=== PATIENT | female | born 2005 | race Caucasian/White ===

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

== ENCOUNTER 2024-09-23 23:35 | Emergency (ER) | payer BC ==
--- NOTE | 2024-09-23 23:39 | ERPHSYRPT ---
- History of Present Illness Time Seen by Provider: 09/23/24 23:39 Historian: patient Exam Limitations: no limitations Physician History: The patient presents with chest pain, nausea, vomiting, and shortness of breath. Chest pain began around 7 to 8 PM today, initially intermittent but now persistent, and is exacerbated by breathing. There is no cough or hemoptysis. Shortness of breath accompanies the chest pain. She has a history of asthma but is not currently on any medication for it. Nausea and vomiting have been present since the onset of the chest pain, with no blood in the vomit. She reports experiencing diarrhea but denies any blood in the stool. She has a history of asthma and anxiety but is not currently taking any medication for anxiety. She was previously prescribed metoprolol for palpitations but has stopped taking it. There is a family history of thyroid issues, but she denies having any thyroid problems. Timing/Duration: hour(s) (3), sudden Activities at Onset: rest Quality: sharpness, stabbing Location: central Chest Pain Radiation: no radiation Severity of Pain-Max: severe Severity of Pain-Current: severe Modifying Factors: Improves With: nothing, other (deep breaths). Worsens With: coughing Associated Symptoms: nausea, vomiting, palpitations, shortness of breath, cough, hurts to breathe Prior Chest Pain/Cardiac Workup: no prior chest pain Nitro Today/Relief: no nitro taken today Aspirin Treatment Today: no aspirin today Allergies/Adverse Reactions: cephalexin monohydrate [From Keflex] Allergy (Verified 09/23/24 23:49) Home Medications: Ondansetron ODT 4 MG [Zofran Odt 4 mg] 8 mg PO Q6HPRN PRN 06/29/24 [History] Hx Tetanus, Diphtheria Vaccination/Date Given: Yes Hx Influenza Vaccination/Date Given: Yes Hx Pneumococcal Vaccination/Date Given: No - Review of Systems All Other Systems: Reviewed and Negative - Past Medical History Pertinent Past Medical History: Yes Neurological History: No Pertinent History ENT History: No Pertinent History Cardiac History: No Pertinent History Respiratory History: No Pertinent History Endocrine Medical History: No Pertinent History Musculoskeletal History: Other GI Medical History: No Pertinent History History: Other Psycho-Social History: No Pertinent History Female Reproductive Disorders: No Pertinent History Other Medical History: AVULSION FX RIGHT HIP NOTED ABOVE. - Past Surgical History Past Surgical History: No Neuro Surgical History: No Pertinent History Cardiac: No Pertinent History Respiratory: No Pertinent History Gastrointestinal: No Pertinent History Genitourinary: No Pertinent History Musculoskeletal: Orthopedic Surgery Female Surgical History: No Pertinent History Significant Family History: no pertinent family hx - Female History Hx Last Menstrual Period: NA - Social History Smoking Status: Never smoker Exposure to second hand smoke: Yes Drug Use: none Patient Lives Alone: No - Nursing Vital Signs Nursing Vital Signs: Initial Vital Signs Temperature 98.7 F 09/23/24 23:36 Pulse Rate 118 H 09/23/24 23:36 Respiratory Rate 22 09/23/24 23:36 Blood Pressure 132/81 09/23/24 23:36 O2 Sat by Pulse Oximetry 96 09/23/24 23:36 Pain Scale Pain Intensity 7 - Physical Exam General Appearance: no apparent distress, anxiety Eye Exam: eyes nml inspection Ears, Nose, Throat Exam: normal ENT inspection Neck Exam: normal inspection, supple, full range of motion Respiratory Exam: normal breath sounds, lungs clear, airway intact, No chest tenderness, No respiratory distress Cardiovascular Exam: normal heart sounds, tachycardia, capillary refill <2 sec, No edema Gastrointestinal/Abdomen Exam: soft, No tenderness, No distention, No mass, No g uarding, No rebound Neurologic Exam: alert, oriented x 3, cooperative, other (anxious) Skin Exam: normal color, warm, dry, No rash SpO2 Interpretation: normal O2 Delivery: Room Air - Course Nursing assessment & vital signs reviewed: Yes EKG Interpreted by Me: RATE (120), Sinus Tach, NORMAL AXIS, NORMAL INTERVALS, NORMAL QRS, NORMAL ST-T - Radiology Exams Chest X-ray Interpretation: Interpreted by me, Negative, No Pneumonia - CT Exams Chest CT Interpretation: Tele-radiologist Report, No PE, Other (LLL calcified nodule 6.5mm likely post granulomatous infection) Ordered Tests: Active Orders 24 hr Category Date Time Status Operating Room Registered Nurse STAT Care 09/23/24 23:43 Active EKG-ER Only STAT Care 09/23/24 23:42 Active IV Insertion STAT Care 09/23/24 23:42 Active CHEST 1 VIEW (PORTABLE) Stat Exams 09/23/24 23:43 Taken CHEST WITH CONTRAST [CT] Stat Exams 09/24/24 00:31 Completed CBC W DIFF Stat Lab 09/23/24 23:59 Completed CMP Stat Lab 09/23/24 23:59 Completed D-DIMER QUANTITATIVE Stat Lab 09/23/24 23:59 Completed HCG QUALITATIVE, SERUM Stat Lab 09/23/24 23:59 Completed TROPONIN Q4H Lab 09/23/24 23:59 Completed TROPONIN Q4H Lab 09/24/24 03:45 Ordered TROPONIN Q4H Lab 09/24/24 07:45 Ordered TSH, 3RD Generation Stat Lab 09/23/24 23:59 Completed UA W/RFX UR CULTURE Stat Lab 09/24/24 00:32 Completed Urine Triage Profile Stat Lab 09/24/24 00:32 Completed Medication Summary Generic Name Dose Route Start Last Admin Trade Name Freq PRN Reason Stop Dose Admin Sodium Chloride 1,000 mls @ 999 mls/hr 09/24/24 02:13 09/24/24 02:20 Sodium Chloride 0.9% 1000 Ml IV 09/24/24 03:13 999 mls/hr .Q1H1M STA Administration Discontinued Medications Generic Name Dose Route Start Last Admin Trade Name Freq PRN Reason Stop Dose Admin Sodium Chloride 1,000 mls @ 999 mls/hr 09/23/24 23:42 09/24/24 00:52 Sodium Chloride 0.9% 1000 Ml IV 09/24/24 00:42 Infused .Q1H1M STA Infusion Sodium Chloride Confirm 09/23/24 23:49 Sodium Chloride 0.9% 1000 Ml Administered 09/23/24 23:50 Dose 1,000 mls @ ud .ROUTE .STK-MED ONE Sodium Chloride Confirm 09/24/24 02:18 Sodium Chloride 0.9% 1000 Ml Administered 09/24/24 02:19 Dose 1,000 mls @ ud .ROUTE .STK-MED ONE Labetalol HCl 10 mg 09/24/24 02:14 Labetalol Hcl 20 Mg/4 Ml Disp.Syringe IV 09/24/24 02:15 STAT ONE Labetalol HCl Confirm 09/24/24 02:18 Labetalol Hcl 20 Mg/4 Ml Disp.Syringe Administered 09/24/24 02:19 Dose 20 mg IV .STK-MED ONE Ondansetron HCl 8 mg 09/23/24 23:44 09/23/24 23:50 Ondansetron Hcl 4 Mg/2 Ml Vial IV 09/23/24 23:45 8 mg STAT ONE Administration Ondansetron HCl Confirm 09/23/24 23:49 Ondansetron Hcl 4 Mg/2 Ml Vial Administered 09/23/24 23:50 Dose 8 mg .ROUTE .STK-MED ONE Ondansetron HCl 4 mg 09/24/24 02:13 09/24/24 02:20 Ondansetron Hcl 4 Mg/2 Ml Vial IV 09/24/24 02:14 4 mg STAT ONE Administration Ondansetron HCl Confirm 09/24/24 02:18 Ondansetron Hcl 4 Mg/2 Ml Vial Administered 09/24/24 02:19 Dose 4 mg .ROUTE .STK-MED ONE Lab/Rad Data: Laboratory Result Diagrams 09/23/24 23:59 09/23/24 23:59 Laboratory Results 09/24/24 09/24/24 09/24/24 Range/Units 00:45 00:32 00:32 WBC (3.98-10.04) x10^3/uL RBC (3.93-5.22) x10^6/uL Hgb (11.2-15.7) g/dL Hct (34.1-44.9) % MCV (79.4-94.8) fL MCH (25.6-32.2) pg MCHC (32.2-35.5) g/dL RDW (11.7-14.4) % Plt Count (182-369) x10^3/uL MPV (9.4-12.3) fL Gran % (34.0-71.1) % Immature Gran % (Auto) (0.001-0.429) % Nucleat RBC Rel Count (0.00-0.2) % Eos # (Auto) (0.04-0.36) x10^3/uL Immature Gran # (Auto) (0.001-0.031) x10^3u/L Absolute Lymphs (auto) (1.18-3.74) x10^3/uL Absolute Monos (auto) (0.24-0.86) x10^3/uL Absolute Nucleated RBC (0.00-0.012) x10^3u/L Lymphocytes % (19.3-51.7) % Monocytes % (4.7-12.5) % Eosinophils % (0.7-5.8) % Basophils % (0.1-1.2) % Absolute Granulocytes (1.56-6.13) x10^3/uL Basophils # (0.01-0.08) x10^3/uL D-Dimer (0.0-0.50) mg/L Sodium (135-145) mmol/L Potassium (3.5-5.1) mmol/L Chloride (98-107) mmol/L Carbon Dioxide (22-30) mmol/L Anion Gap (5-15) MEQ/L BUN (7-17) mg/dL Creatinine (0.52-1.04) mg/dL Estimated GFR ML/MIN Glucose (74-106) mg/dL Calcium (8.4-10.2) mg/dL Total Bilirubin (0.2-1.3) mg/dL AST (14-36) U/L ALT (0-35) U/L Alkaline Phosphatase (38-126) U/L Troponin I (0.000-0.033) ng/mL Serum Total Protein (6.3-8.2) g/dL Albumin (3.5-5.0) g/dL Free T4 (0.78-2.19) ng/dL TSH 3rd Generation (0.470-4.680) mIU/L Serum HCG, Qual (NEGATIVE) Urine Color Yellow (Yellow) Urine Appearance Clear (Clear) Urine pH 5.5 (4.6-8.0) Ur Specific [place] 1.020 (1.005-1.030) Urine Protein Negative (Negative) Urine Glucose (UA) Negative (Negative) mg/dL Urine Ketones Trace A (Negative) Urine Blood Negative (Negative) Urine Nitrite Negative (Negative) Urine Bilirubin Negative (Negative) Urine Urobilinogen 0.2 (0.2) mg/dL Ur Leukocyte Esterase Negative (Negative) U Hyaline Cast (Auto) 3-5 A (0-2) /LPF Urine Microscopic RBC 3-5 (0-5) /HPF Urine Microscopic WBC 0-2 (0-5) /HPF Ur Epithelial Cells Few (None Seen) /HPF Urine Bacteria None Seen (None Seen) /HPF Urine Culture Reflexed NO (NO) Urine Opiates Level NEGATIVE (NEGATIVE) Ur Methadone NEGATIVE (NEGATIVE) Urine Barbiturates NEGATIVE (NEGATIVE) Ur Phencyclidine (PCP) NEGATIVE (NEGATIVE) Urine Amphetamine NEGATIVE (NEGATIVE) U Benzodiazepine Level NEGATIVE (NEGATIVE) Urine Cocaine NEGATIVE (NEGATIVE) Urine Marijuana (THC) NEGATIVE (NEGATIVE) Influenza Type A Ag NEGATIVE (NEGATIVE) Influenza Type B Ag NEGATIVE (NEGATIVE) RSV (PCR) NEGATIVE (NEGATIVE) SARS-CoV-2 (PCR) NEGATIVE (NEGATIVE) 09/23/24 09/23/24 09/23/24 Range/Units 23:59 23:59 23:59 WBC (3.98-10.04) x10^3/uL RBC (3.93-5.22) x10^6/uL Hgb (11.2-15.7) g/dL Hct (34.1-44.9) % MCV (79.4-94.8) fL MCH (25.6-32.2) pg MCHC (32.2-35.5) g/dL RDW (11.7-14.4) % Plt Count (182-369) x10^3/uL MPV (9.4-12.3) fL Gran % (34.0-71.1) % Immature Gran % (Auto) (0.001-0.429) % Nucleat RBC Rel Count (0.00-0.2) % Eos # (Auto) (0.04-0.36) x10^3/uL Immature Gran # (Auto) (0.001-0.031) x10^3u/L Absolute Lymphs (auto) (1.18-3.74) x10^3/uL Absolute Monos (auto) (0.24-0.86) x10^3/uL Absolute Nucleated RBC (0.00-0.012) x10^3u/L Lymphocytes % (19.3-51.7) % Monocytes % (4.7-12.5) % Eosinophils % (0.7-5.8) % Basophils % (0.1-1.2) % Absolute Granulocytes (1.56-6.13) x10^3/uL Basophils # (0.01-0.08) x10^3/uL D-Dimer (0.0-0.50) mg/L Sodium (135-145) mmol/L Potassium (3.5-5.1) mmol/L Chloride (98-107) mmol/L Carbon Dioxide (22-30) mmol/L Anion Gap (5-15) MEQ/L BUN (7-17) mg/dL Creatinine (0.52-1.04) mg/dL Estimated GFR ML/MIN Glucose (74-106) mg/dL Calcium (8.4-10.2) mg/dL Total Bilirubin (0.2-1.3) mg/dL AST (14-36) U/L ALT (0-35) U/L Alkaline Phosphatase (38-126) U/L Troponin I < 0.012 (0.000-0.033) ng/mL Serum Total Protein (6.3-8.2) g/dL Albumin (3.5-5.0) g/dL Free T4 1.09 (0.78-2.19) ng/dL TSH 3rd Generation (0.470-4.680) mIU/L Serum HCG, Qual NEGATIVE (NEGATIVE) Urine Color (Yellow) Urine Appearance (Clear) Urine pH (4.6-8.0) Ur Specific [place] (1.005-1.030) Urine Protein (Negative) Urine Glucose (UA) (Negative) mg/dL Urine Ketones (Negative) Urine Blood (Negative) Urine Nitrite (Negative) Urine Bilirubin (Negative) Urine Urobilinogen (0.2) mg/dL Ur Leukocyte Esterase (Negative) U Hyaline Cast (Auto) (0-2) /LPF Urine Microscopic RBC (0-5) /HPF Urine Microscopic WBC (0-5) /HPF Ur Epithelial Cells (None Seen) /HPF Urine Bacteria (None Seen) /HPF Urine Culture Reflexed (NO) Urine Opiates Level (NEGATIVE) Ur Methadone (NEGATIVE) Urine Barbiturates (NEGATIVE) Ur Phencyclidine (PCP) (NEGATIVE) Urine Amphetamine (NEGATIVE) U Benzodiazepine Level (NEGATIVE) Urine Cocaine (NEGATIVE) Urine Marijuana (THC) (NEGATIVE) Influenza Type A Ag (NEGATIVE) Influenza Type B Ag (NEGATIVE) RSV (PCR) (NEGATIVE) SARS-CoV-2 (PCR) (NEGATIVE) 09/23/24 09/23/24 09/23/24 Range/Units 23:59 23:59 23:59 WBC (3.98-10.04) x10^3/uL RBC (3.93-5.22) x10^6/uL Hgb (11.2-15.7) g/dL Hct (34.1-44.9) % MCV (79.4-94.8) fL MCH (25.6-32.2) pg MCHC (32.2-35.5) g/dL RDW (11.7-14.4) % Plt Count (182-369) x10^3/uL MPV (9.4-12.3) fL Gran % (34.0-71.1) % Immature Gran % (Auto) (0.001-0.429) % Nucleat RBC Rel Count (0.00-0.2) % Eos # (Auto) (0.04-0.36) x10^3/uL Immature Gran # (Auto) (0.001-0.031) x10^3u/L Absolute Lymphs (auto) (1.18-3.74) x10^3/uL Absolute Monos (auto) (0.24-0.86) x10^3/uL Absolute Nucleated RBC (0.00-0.012) x10^3u/L Lymphocytes % (19.3-51.7) % Monocytes % (4.7-12.5) % Eosinophils % (0.7-5.8) % Basophils % (0.1-1.2) % Absolute Granulocytes (1.56-6.13) x10^3/uL Basophils # (0.01-0.08) x10^3/uL D-Dimer 1.30 H* (0.0-0.50) mg/L Sodium 140 (135-145) mmol/L Potassium 4.0 (3.5-5.1) mmol/L Chloride 107 (98-107) mmol/L Carbon Dioxide 20 L (22-30) mmol/L Anion Gap 17.0 H (5-15) MEQ/L BUN 12 (7-17) mg/dL Creatinine 0.72 (0.52-1.04) mg/dL Estimated GFR 122.7 ML/MIN Glucose 137 H (74-106) mg/dL Calcium 9.6 (8.4-10.2) mg/dL Total Bilirubin 0.70 (0.2-1.3) mg/dL AST 30 (14-36) U/L ALT 25 (0-35) U/L Alkaline Phosphatase 130 H (38-126) U/L Troponin I (0.000-0.033) ng/mL Serum Total Protein 8.5 H (6.3-8.2) g/dL Albumin 5.0 (3.5-5.0) g/dL Free T4 (0.78-2.19) ng/dL TSH 3rd Generation 0.702 (0.470-4.680) mIU/L Serum HCG, Qual (NEGATIVE) Urine Color (Yellow) Urine Appearance (Clear) Urine pH (4.6-8.0) Ur Specific [place] (1.005-1.030) Urine Protein (Negative) Urine Glucose (UA) (Negative) mg/dL Urine Ketones (Negative) Urine Blood (Negative) Urine Nitrite (Negative) Urine Bilirubin (Negative) Urine Urobilinogen (0.2) mg/dL Ur Leukocyte Esterase (Negative) U Hyaline Cast (Auto) (0-2) /LPF Urine Microscopic RBC (0-5) /HPF Urine Microscopic WBC (0-5) /HPF Ur Epithelial Cells (None Seen) /HPF Urine Bacteria (None Seen) /HPF Urine Culture Reflexed (NO) Urine Opiates Level (NEGATIVE) Ur Methadone (NEGATIVE) Urine Barbiturates (NEGATIVE) Ur Phencyclidine (PCP) (NEGATIVE) Urine Amphetamine (NEGATIVE) U Benzodiazepine Level (NEGATIVE) Urine Cocaine (NEGATIVE) Urine Marijuana (THC) (NEGATIVE) Influenza Type A Ag (NEGATIVE) Influenza Type B Ag (NEGATIVE) RSV (PCR) (NEGATIVE) SARS-CoV-2 (PCR) (NEGATIVE) 09/23/24 Range/Units 23:59 WBC 17.6 H (3.98-10.04) x10^3/uL RBC 5.51 H (3.93-5.22) x10^6/uL Hgb 15.7 (11.2-15.7) g/dL Hct 46.5 H (34.1-44.9) % MCV 84.4 (79.4-94.8) fL MCH 28.5 (25.6-32.2) pg MCHC 33.8 (32.2-35.5) g/dL RDW 12.8 (11.7-14.4) % Plt Count 283 (182-369) x10^3/uL MPV 10.0 (9.4-12.3) fL Gran % 90.8 H (34.0-71.1) % Immature Gran % (Auto) 0.4 (0.001-0.429) % Nucleat RBC Rel Count 0.0 (0.00-0.2) % Eos # (Auto) 0.05 (0.04-0.36) x10^3/uL Immature Gran # (Auto) 0.07 H (0.001-0.031) x10^3u/L Absolute Lymphs (auto) 0.60 L (1.18-3.74) x10^3/uL Absolute Monos (auto) 0.88 H (0.24-0.86) x10^3/uL Absolute Nucleated RBC 0.00 (0.00-0.012) x10^3u/L Lymphocytes % 3.4 L (19.3-51.7) % Monocytes % 5.0 (4.7-12.5) % Eosinophils % 0.3 L (0.7-5.8) % Basophils % 0.1 (0.1-1.2) % Absolute Granulocytes 15.96 H (1.56-6.13) x10^3/uL Basophils # 0.02 (0.01-0.08) x10^3/uL D-Dimer (0.0-0.50) mg/L Sodium (135-145) mmol/L Potassium (3.5-5.1) mmol/L Chloride (98-107) mmol/L Carbon Dioxide (22-30) mmol/L Anion Gap (5-15) MEQ/L BUN (7-17) mg/dL Creatinine (0.52-1.04) mg/dL Estimated GFR ML/MIN Glucose (74-106) mg/dL Calcium (8.4-10.2) mg/dL Total Bilirubin (0.2-1.3) mg/dL AST (14-36) U/L ALT (0-35) U/L Alkaline Phosphatase (38-126) U/L Troponin I (0.000-0.033) ng/mL Serum Total Protein (6.3-8.2) g/dL Albumin (3.5-5.0) g/dL Free T4 (0.78-2.19) ng/dL TSH 3rd Generation (0.470-4.680) mIU/L Serum HCG, Qual (NEGATIVE) Urine Color (Yellow) Urine Appearance (Clear) Urine pH (4.6-8.0) Ur Specific [place] (1.005-1.030) Urine Protein (Negative) Urine Glucose (UA) (Negative) mg/dL Urine Ketones (Negative) Urine Blood (Negative) Urine Nitrite (Negative) Urine Bilirubin (Negative) Urine Urobilinogen (0.2) mg/dL Ur Leukocyte Esterase (Negative) U Hyaline Cast (Auto) (0-2) /LPF Urine Microscopic RBC (0-5) /HPF Urine Microscopic WBC (0-5) /HPF Ur Epithelial Cells (None Seen) /HPF Urine Bacteria (None Seen) /HPF Urine Culture Reflexed (NO) Urine Opiates Level (NEGATIVE) Ur Methadone (NEGATIVE) Urine Barbiturates (NEGATIVE) Ur Phencyclidine (PCP) (NEGATIVE) Urine Amphetamine (NEGATIVE) U Benzodiazepine Level (NEGATIVE) Urine Cocaine (NEGATIVE) Urine Marijuana (THC) (NEGATIVE) Influenza Type A Ag (NEGATIVE) Influenza Type B Ag (NEGATIVE) RSV (PCR) (NEGATIVE) SARS-CoV-2 (PCR) (NEGATIVE) - Progress Progress: improved Air Movement: good Progress Note: 09/23/24 23:48 Chest Pain Intermittent chest pain that has become constant since getting in the car, worsens with breathing. No cough, hemoptysis, or diarrhea. Differential diagnosis includes musculoskeletal pain, pleuritic pain, or cardiac-related pain. Palpitations present, not taking prescribed metoprolol. - Order diagnostic tests to evaluate chest pain, including cardiac and pulmonary assessments. Shortness of Breath Acute shortness of breath associated with chest pain and nausea, worsens with breathing. No history of asthma. - Order diagnostic tests to evaluate shortness of breath, including pulmonary function tests. Nausea and Vomiting Acute onset of nausea and vomiting starting around 7-8 PM, associated with chest pain and shortness of breath. No hematemesis. - Order diagnostic tests to evaluate nausea and vomiting, including gastrointestinal assessment. 09/24/24 02:15 labs consistent with dehydration, 1L NS bolus completed, HR still ranging from 100-120 so 2nd L NS given. COVID, Flu, RSV all neg. CTA chest was ordered to d- dimer of 1.3 which was neg for PE. 09/24/24 02:18 EKG and troponin neg. Unlikely cardiac source of CP. Blood Culture(s) Obtained: No Antibiotics given: No Counseled pt/family regarding: lab results, diagnosis, need for follow-up, rad results - Departure Departure Disposition: Home Clinical Impression: Viral gastroenteritis, Dehydration, Elevated d-dimer, Atypical chest pain Condition: Stable Critical Care Time: No Referrals: [facility]IST [Primary Care Provider] - Follow up/PCP as directed Instructions: Viral gastroenteritis in adults Prescriptions: Ondansetron [Ondansetron Odt] 8 mg PO TID PRN 7 Days #21 tablet PRN Reason: Nausea/Vomiting
[2024-09-23 23:49] VITALS: TEMP 98.7
[2024-09-23] MEDS ORDERED: Zofran 4 MG/2 ML VIAL ONE (23:49)
[2024-09-23] MEDS ORDERED: Sodium Chloride 0.9% 1000 ML 1,000 ML ONE (23:49)
[2024-09-23] MEDS: Sodium Chloride 0.9% 1000 ML 1,000 ML IV STA (23:50)
[2024-09-23] MEDS: Zofran 4 MG/2 ML VIAL IV ONE (23:50)
[2024-09-24 00:02] LABS: Absolute Neutrophil Ct (ANC) 15.96 x10^3/uL (1.56-6.13); BASOPHIL % 0.1 % (0.1-1.2); Basophil (Absolute #) 0.02 x10^3/uL (0.01-0.08); Eosinophil % 0.3 % (0.7-5.8); Eosinophil (Absolute #) 0.05 x10^3/uL (0.04-0.36); Hematocrit 46.5 % (34.1-44.9); Hemoglobin 15.7 g/dL (11.2-15.7); IMMATURE GRAN # 0.07 x10^3u/L (0.001-0.031); IMMATURE GRAN % 0.4 % (0.001-0.429); Lymphocytes % 3.4 % (19.3-51.7); Mean Cell Volume 84.4 fL (79.4-94.8); Mean Corpuscular Hemoglobin 28.5 pg (25.6-32.2); Mean Corpuscular Hgb Concent. 33.8 g/dL (32.2-35.5); Monocyte (Absolute #) 0.88 x10^3/uL (0.24-0.86); Neutrophil % 90.8 % (34.0-71.1); Platelet Count 283 x10^3/uL (182-369); Red Blood Count 5.51 x10^6/uL (3.93-5.22); Red Cell Distribution Width 12.8 % (11.7-14.4); White Blood Count 17.6 x10^3/uL (3.98-10.04)
[2024-09-24 00:14] LABS: HCG SERUM TEST NEGATIVE (NEGATIVE)
[2024-09-24 00:15] LABS: BILIRUBIN,TOTAL 0.7 mg/dL (0.2-1.3); Calcium 9.6 mg/dL (8.4-10.2); Creatinine 1 0.72 mg/dL (0.52-1.04); EST GLOMERULAR FILTRATION RATE 122.7 ML/MIN; Total Protein 8.5 g/dL (6.3-8.2)
[2024-09-24 00:45] LABS: Appearance Clear (Clear); Bacteria None Seen /HPF (None Seen); Bilirubin Negative (Negative); Blood Negative (Negative); Epithelial Cells Few /HPF (None Seen); Glucose, Urine Negative (Negative); Ketones Trace (Negative); Leukocyte Esterase Negative (Negative); Nitrite Negative (Negative); Ph 5.5 (4.6-8.0); Protein,Urine Dip Negative (Negative); Urobilinogen 0.2 mg/dL (0.2); WBC 0-2 /HPF (0-5)
[2024-09-24 00:53] LABS: Amphetamine,Urine NEGATIVE (NEGATIVE); Barbiturate,Urine NEGATIVE (NEGATIVE); Benzodiazepine,Urine NEGATIVE (NEGATIVE); Cocaine,Urine NEGATIVE (NEGATIVE); Methadone,Urine NEGATIVE (NEGATIVE); Opiate,Urine NEGATIVE (NEGATIVE); PCP,Urine NEGATIVE (NEGATIVE); THC,Urine NEGATIVE (NEGATIVE)
[2024-09-24 01:25] LABS: INFLUENZA A NEGATIVE (NEGATIVE); INFLUENZA B NEGATIVE (NEGATIVE); RESPIRATORY SYNCTIAL VIRUS NEGATIVE (NEGATIVE); SARS-CoV-2 Xpert Express NEGATIVE (NEGATIVE)
--- NOTE | 2024-09-24 02:08 | XRAY ---
CLINICAL HISTORY: chest pain COMPARISON: None. TECHNIQUE: Contiguous axial CT angiography images of the chest were acquired with the administration of intravenous contrast. Coronal and sagittal reconstructions were obtained. 80cc of isovue 370 was administered intravenously. One of the following dose reduction techniques was utilized for this exam: Automated exposure control, adjustment of the mA and/or kV according to patient size, and use of iterative reconstruction. One of these 3D techniques was utilized: Maximum Intensity Pixel (MIP), 3D Reconstructed Images, Volume Rendered Images, Surface Shaded Rendering. DLP: 462.9 mGy-cm, CTDI: 29.4 mGy. FINDINGS: Lungs: Left lower lung lobe calcified pulmonary nodule measuring 6.5 mm; likely post-granulomatous infection. No evidence of consolidation, or collapse. No ground-glass opacities or interstitial changes. No pleural effusion or pleural thickening. Mediastinum: No mediastinal mass or abnormal lymphadenopathy. Heart and Great Vessels: Normal heart size and configuration. No pericardial effusion. Normal caliber and course of the thoracic aorta and other great vessels. No significant atherosclerosis or aneurysm. Pulmonary Arteries: No evidence of pulmonary embolism. Normal size and course of the pulmonary arteries. Bones: No fractures or lytic/sclerotic lesions. Normal bone density and alignment. No evidence of rib fractures. Chest Wall: No masses or soft tissue abnormalities. Upper Abdomen: No abnormalities were noted in the visualized upper abdominal organs. Thyroid: Normal size and morphology. No nodules or masses. IMPRESSION: 1. No evidence of acute pulmonary embolism. 2. No evidence of consolidation or pleural effusion. 3. Left lower lung lobe calcified pulmonary nodule measuring 6.5 mm; likely post-granulomatous infection. Electronically Signed by: Hi Pacheco MD. (09/24/2024 02:05:08 EST)
[2024-09-24] MEDS ORDERED: Zofran 4 MG/2 ML VIAL ONE (02:18)
[2024-09-24] MEDS ORDERED: Sodium Chloride 0.9% 1000 ML 1,000 ML ONE (02:18)
[2024-09-24] MEDS ORDERED: TRANDATE 20 MG/4 ML SYRINGE IV ONE (02:18)
[2024-09-24] MEDS: Sodium Chloride 0.9% 1000 ML 1,000 ML IV STA (02:20)
[2024-09-24] MEDS: Zofran 4 MG/2 ML VIAL IV ONE (02:20)
[2024-09-24] MEDS: TRANDATE 20 MG/4 ML SYRINGE IV ONE (02:36)
[2024-09-24 03:20] VITALS: BP 121/69; PULSE 97; RESP 18; O2SAT 99
--- NOTE | 2024-09-24 08:21 | XRAY ---
Indication: Chest pain. Comparison: August 08, 2020 Portable chest again demonstrates normal heart, lungs, and bony thorax with incidental tiny calcified granulomas.
== END 2024-09-24 03:21 | disposition home or self-care (01) ==
LOC: ED 23:35
DX: A08.4 Viral intestinal infection, unspecified (principal); E86.0 Dehydration; R79.1 Abnormal coagulation profile; R07.89 Other chest pain; R11.2 Nausea with vomiting, unspecified; R06.02 Shortness of breath; Z79.899 Other long term (current) drug therapy
CPT/HCPCS: 0241U; 36415; 71045; 71260; 80053; 80307; 81001; 84439; 84443; 84484; 84703; 85025; 85379; 93005; 93041; 96360; 96374; 96376; 99285; J2405

== ENCOUNTER 2025-06-27 13:59 | Observation (INO) | payer BC, MEDICAID ==
[2025-06-27 14:23] LABS: BASOPHIL % 0.2 % (0.1-1.2); Basophil (Absolute #) 0.02 x10^3/uL (0.01-0.08); Eosinophil (Absolute #) 0.09 x10^3/uL (0.04-0.36); Hematocrit 33.6 % (34.1-44.9); Hemoglobin 10.9 g/dL (11.2-15.7); IMMATURE GRAN # 0.10 x10^3u/L (0.001-0.031); IMMATURE GRAN % 0.9 % (0.001-0.429); Lymphocyte (Absolute #) 1.90 x10^3/uL (1.18-3.74); Mean Corpuscular Hemoglobin 29.1 pg (25.6-32.2); Mean Corpuscular Hgb Concent. 32.4 g/dL (32.2-35.5); Monocyte (Absolute #) 0.81 x10^3/uL (0.24-0.86); NUCLEATED RBC # 0.00 x10^3u/L (0.00-0.012); NUCLEATED RBC % 0.0 % (0.00-0.2); Platelet Count 247 x10^3/uL (182-369); Red Blood Count 3.74 x10^6/uL (3.93-5.22); White Blood Count 11.1 x10^3/uL (3.98-10.04)
[2025-06-27 14:32] LABS: Glucose, Urine Negative (Negative); Protein,Urine Dip Negative (Negative); RBC 0-2 /HPF (0-5); WBC 0-2 /HPF (0-5)
[2025-06-27 14:35] LABS: Calcium 9.0 mg/dL (8.4-10.2); Carbon Dioxide 22 mmol/L (22-30); Creatinine 1 0.50 mg/dL (0.52-1.04); EST GLOMERULAR FILTRATION RATE 137.6 ML/MIN; Glucose 100 mg/dL (74-106); LDH-LACTATE DEHYDROGENASE 146 U/L (120-246); Potassium 3.5 mmol/L (3.5-5.1); SGOT/AST 20 U/L (14-36); SGPT/ALT 14 U/L (0-35); Total Protein 7.0 g/dL (6.3-8.2); Uric Acid 3.7 mg/dL (2.6-6.0)
[2025-06-27 14:48] LABS: Amphetamine,Urine NEGATIVE (NEGATIVE); Barbiturate,Urine NEGATIVE (NEGATIVE); Benzodiazepine,Urine NEGATIVE (NEGATIVE); Cocaine,Urine NEGATIVE (NEGATIVE); Methadone,Urine NEGATIVE (NEGATIVE); Opiate,Urine NEGATIVE (NEGATIVE); PCP,Urine NEGATIVE (NEGATIVE); THC,Urine NEGATIVE (NEGATIVE); TP, Urine Random 13.0 mg/dl (<12)
[2025-06-27 14:57] LABS: Creatinine, Urine Random 9.4 mg/dl; Protein Creatinine Ratio, Ran. 1.38 mg/mg (0.0-0.15)
[2025-06-27 14:59] VITALS: RESP 16; TEMP 98
[2025-06-27 15:04] VITALS: PULSE 88; O2SAT 100
[2025-06-27 15:05] VITALS: BP 128/76
== END 2025-06-27 15:36 | disposition home or self-care (01) ==
LOC: OB 13:59
PROVIDERS: ADMIT Obstetrics & Gynecology; ATTEND Obstetrics & Gynecology
DX: Z34.02 Encounter for supervision of normal first pregnancy, second trimester (principal); Z3A.24 24 weeks gestation of pregnancy

== ENCOUNTER 2025-07-27 11:40 | Emergency (ER) | payer BC, MEDICAID ==
--- NOTE | 2025-07-27 11:44 | ERPHSYRPT ---
- History of Present Illness Time Seen by Provider: 07/27/25 11:44 Source: patient, family Exam Limitations: no limitations Physician History: This is a 20-year-old white female patient arrives her private vehicle and is a patient of nurse practitioner Ector and braille proofreader Dr. Huynh. Patient was seen by her braille proofreader on 07/25/2025 and started on nitrofurantoin secondary to a urinary tract infection. Patient has persistent low back pain, pelvic pressure and dysuria. Patient was told by the braille proofreader's office that it is recommended that she come to the emergency department. Dr. Huynh recommended OB department to come down to evaluate for contractions, obtain a straight cath urine specimen, CBC, CMP, urine protein studies, LDH and ultrasound of both kidneys. Patient has not had any vaginal discharge or leakage. She denies chest pain. She is not short of breath. Timing/Duration: day(s) (2 to 3 days) Activites at Onset: none Quality: burning (With urination), pressure (Pressure sensation in the lower back and pelvic region) Onset Location: pelvic pain (Described as more of a pressure), low back pain (Described as a pressure) Severity of Pain-Max: mild Severity of Pain-Current: mild Prior abdominal problems: none Sexual intercourse history: non-contributory Associated Symptoms: dysuria, lower back pain, No loss of bladder control, No vaginal discharge, No vaginal fluid leakage Allergies/Adverse Reactions: cephalexin monohydrate [From Keflex] Allergy (Mild, Verified 06/27/25 14:43) Home Medications: Labetalol HCl 100 mg [Trandate 100 MG] 100 mg PO BID 06/27/25 [History] Pnv No.95/Ferrous Fum/Folic AC [ Vitamin Tablet] 1 each PO DAILY 06/27/25 [History] Hx Tetanus, Diphtheria Vaccination/Date Given: Yes Hx Influenza Vaccination/Date Given: Yes Hx Pneumococcal Vaccination/Date Given: No Travel Risk - International Travel Have you traveled outside of the country in past 3 weeks: No - Emerging Infectious Disease Are you exhibiting symptoms associated with any current EIDs: Yes Symptoms: Abdominal Pain, Diarrhea, Shortness of Breath, Vomitting - Review of Systems Constitutional: No Symptoms Eyes: No Symptoms Ears, Nose, & Throat: No Symptoms Respiratory: No Symptoms Cardiac: No Symptoms Abdominal/Gastrointestinal: Abdominal Pain (Pelvic pressure) Genitourinary Symptoms: Dysuria Musculoskeletal: No Symptoms Skin: No Symptoms Neurological: No Symptoms Psychological: No Symptoms Endocrine: No Symptoms Hematologic/Lymphatic: No Symptoms Immunological/Allergic: No Symptoms All Other Systems: Reviewed and Negative - Past Medical History Pertinent Past Medical History: Yes Neurological History: No Pertinent History ENT History: No Pertinent History Cardiac History: No Pertinent History Respiratory History: No Pertinent History Endocrine Medical History: No Pertinent History Musculoskeletal History: Other GI Medical History: No Pertinent History History: Other Psycho-Social History: No Pertinent History Female Reproductive Disorders: No Pertinent History Other Medical History: AVULSION FX RIGHT HIP NOTED ABOVE. - Past Surgical History Past Surgical History: No Neuro Surgical History: No Pertinent History Cardiac: No Pertinent History Respiratory: No Pertinent History Gastrointestinal: No Pertinent History Genitourinary: No Pertinent History Musculoskeletal: Orthopedic Surgery Female Surgical History: No Pertinent History Significant Family History: no pertinent family hx - Female History Hx Last Menstrual Period: NA - Social History Smoking Status: Never smoker Exposure to second hand smoke: Yes - Social Determinants of Health Will the patient participate in the screening: Yes Do you worry about a steady place to live?: No In the past 12 months,have you had to go without utilities?: No Transportation Issues: No Has anyone in your support network made you feel unsafe?: No Have you or anyone in your house had to go w/o enough food: No - Nursing Vital Signs Nursing Vital Signs: Initial Vital Signs Pulse Rate 101 H 07/27/25 11:41 Respiratory Rate 20 07/27/25 11:41 Blood Pressure 143/76 07/27/25 11:41 O2 Sat by Pulse Oximetry 98 07/27/25 11:41 Pain Scale Pain Intensity 0 - Physical Exam General Appearance: no apparent distress, alert, anxiety Eye Exam: PERRL/EOMI, eyes nml inspection Ears, Nose, Throat Exam: normal ENT inspection, moist mucous membranes Neck Exam: normal inspection, non-tender, supple, full range of motion Respiratory Exam: normal breath sounds, lungs clear, airway intact, No chest tenderness, No respiratory distress Cardiovascular Exam: regular rate/rhythm, normal heart sounds, normal peripheral pulses Gastrointestinal/Abdomen Exam: soft, normal bowel sounds, No tenderness Pelvic Exam: not done Rectal Exam: not done Back Exam: normal inspection, normal range of motion, No CVA tenderness, No vertebral tenderness Extremity Exam: normal inspection, normal range of motion, pelvis stable Neurologic Exam: alert, oriented x 3, cooperative, optometrist II-XII nml as tested, normal mood/affect, nml cerebellar function, nml station & gait, sensation nml Skin Exam: normal color, warm, dry Lymphatic Exam: No adenopathy SpO2 Interpretation: normal O2 Delivery: Room Air - Course Nursing assessment & vital signs reviewed: Yes Ordered Tests: Active Orders 24 hr Category Date Time Status IV Insertion STAT Care 07/27/25 11:44 Active KIDNEY [US] Stat Exams 07/27/25 11:47 Completed AMYLASE Stat Lab 07/27/25 12:27 Completed BLOOD CULTURE Stat Lab 07/27/25 12:27 Received CBC W DIFF Stat Lab 07/27/25 12:27 Completed CMP Stat Lab 07/27/25 12:27 Completed CULTURE,URINE Stat Lab 07/27/25 11:44 Received LDH-LACTATE DEHYDROGENASE Stat Lab 07/27/25 12:27 Completed LIPASE Stat Lab 07/27/25 12:27 Completed UA W/RFX UR CULTURE Stat Lab 07/27/25 11:44 Completed Uric Acid Stat Lab 07/27/25 12:27 Completed Urine Protein/Creatinine Ratio [TP/CR Urine Ratio] Stat Lab 07/27/25 11:54 Completed Medication Summary Discontinued Medications Generic Name Dose Route Start Last Admin Trade Name Ulises PRN Reason Stop Dose Admin Sodium Chloride 1,000 mls @ 999 mls/hr 07/27/25 11:44 07/27/25 13:19 Sodium Chloride 0.9% 1000 Ml IV 07/27/25 12:44 Infused .Q1H1M STA Infusion Sodium Chloride Confirm 07/27/25 12:08 Sodium Chloride 0.9% 1000 Ml Administered 07/27/25 12:09 Dose 1,000 mls @ ud .ROUTE .STK-MED ONE Lab/Rad Data: Laboratory Result Diagrams 07/27/25 12:27 07/27/25 12:27 Laboratory Results 07/27/25 07/27/25 07/27/25 Range/Units 12:27 12:27 11:54 WBC 10.8 H (3.98-10.04) x10^3/uL RBC 3.60 L (3.93-5.22) x10^6/uL Hgb 9.9 L (11.2-15.7) g/dL Hct 31.7 L (34.1-44.9) % MCV 88.1 (79.4-94.8) fL MCH 27.5 (25.6-32.2) pg MCHC 31.2 L (32.2-35.5) g/dL RDW 13.5 (11.7-14.4) % Plt Count 258 (182-369) x10^3/uL MPV 9.8 (9.4-12.3) fL Gran % 73.9 H (34.0-71.1) % Immature Gran % (Auto) 1.2 H (0.001-0.429) % Nucleat RBC Rel Count 0.0 (0.00-0.2) % Eos # (Auto) 0.08 (0.04-0.36) x10^3/uL Immature Gran # (Auto) 0.13 H (0.001-0.031) x10^3u/L Absolute Lymphs (auto) 1.78 (1.18-3.74) x10^3/uL Absolute Monos (auto) 0.81 (0.24-0.86) x10^3/uL Absolute Nucleated RBC 0.00 (0.00-0.012) x10^3u/L Lymphocytes % 16.5 L (19.3-51.7) % Monocytes % 7.5 (4.7-12.5) % Eosinophils % 0.7 (0.7-5.8) % Basophils % 0.2 (0.1-1.2) % Absolute Granulocytes 7.99 H (1.56-6.13) x10^3/uL Basophils # 0.02 (0.01-0.08) x10^3/uL Sodium 135 (135-145) mmol/L Potassium 3.8 (3.5-5.1) mmol/L Chloride 107 (98-107) mmol/L Carbon Dioxide 22 (22-30) mmol/L Anion Gap 9.2 (5-15) MEQ/L BUN 4 L (7-17) mg/dL Creatinine 0.46 L (0.52-1.04) mg/dL Estimated GFR 139.5 ML/MIN Glucose 81 (74-106) mg/dL Uric Acid 4.0 (2.6-6.0) mg/dL Calcium 8.3 L (8.4-10.2) mg/dL Total Bilirubin < 0.10 L (0.2-1.3) mg/dL AST 24 (14-36) U/L ALT 14 (0-35) U/L Alkaline Phosphatase 109 (38-126) U/L Lactate Dehydrogenase 150 (120-246) U/L Serum Total Protein 6.7 (6.3-8.2) g/dL Albumin 3.5 (3.5-5.0) g/dL Amylase 57 (30-110) U/L Lipase 50 (23-300) U/L Urine Color (Yellow) Urine Appearance (Clear) Urine pH (4.6-8.0) Ur Specific [place] (1.005-1.030) Urine Protein (Negative) Urine Glucose (UA) (Negative) mg/dL Urine Ketones (Negative) Urine Blood (Negative) Urine Nitrite (Negative) Urine Bilirubin (Negative) Urine Urobilinogen (0.2) mg/dL Ur Leukocyte Esterase (Negative) U Hyaline Cast (Auto) (0-2) /LPF Urine Microscopic RBC (0-5) /HPF Urine Microscopic WBC (0-5) /HPF Ur Epithelial Cells (None Seen) /HPF Calcium Oxalate Crystal (None Seen) /HPF Urine Bacteria (None Seen) /HPF Urine Culture Reflexed (NO) Ur Random Creatinine 109.0 mg/dl U Random Total Protein 16.0 (<12) mg/dl U [place] Prot/Creat Ratio 0.15 (0.0-0.15) mg/mg 11/14/25 Range/Units 11:44 WBC (3.98-10.04) x10^3/uL RBC (3.93-5.22) x10^6/uL Hgb (11.2-15.7) g/dL Hct (34.1-44.9) % MCV (79.4-94.8) fL MCH (25.6-32.2) pg MCHC (32.2-35.5) g/dL RDW (11.7-14.4) % Plt Count (182-369) x10^3/uL MPV (9.4-12.3) fL Gran % (34.0-71.1) % Immature Gran % (Auto) (0.001-0.429) % Nucleat RBC Rel Count (0.00-0.2) % Eos # (Auto) (0.04-0.36) x10^3/uL Immature Gran # (Auto) (0.001-0.031) x10^3u/L Absolute Lymphs (auto) (1.18-3.74) x10^3/uL Absolute Monos (auto) (0.24-0.86) x10^3/uL Absolute Nucleated RBC (0.00-0.012) x10^3u/L Lymphocytes % (19.3-51.7) % Monocytes % (4.7-12.5) % Eosinophils % (0.7-5.8) % Basophils % (0.1-1.2) % Absolute Granulocytes (1.56-6.13) x10^3/uL Basophils # (0.01-0.08) x10^3/uL Sodium (135-145) mmol/L Potassium (3.5-5.1) mmol/L Chloride (98-107) mmol/L Carbon Dioxide (22-30) mmol/L Anion Gap (5-15) MEQ/L BUN (7-17) mg/dL Creatinine (0.52-1.04) mg/dL Estimated GFR ML/MIN Glucose (74-106) mg/dL Uric Acid (2.6-6.0) mg/dL Calcium (8.4-10.2) mg/dL Total Bilirubin (0.2-1.3) mg/dL AST (14-36) U/L ALT (0-35) U/L Alkaline Phosphatase (38-126) U/L Lactate Dehydrogenase (120-246) U/L Serum Total Protein (6.3-8.2) g/dL Albumin (3.5-5.0) g/dL Amylase (30-110) U/L Lipase (23-300) U/L Urine Color Yellow (Yellow) Urine Appearance Turbid A (Clear) Urine pH 7.0 (4.6-8.0) Ur Specific [place] 1.015 (1.005-1.030) Urine Protein Trace A (Negative) Urine Glucose (UA) Negative (Negative) mg/dL Urine Ketones Negative (Negative) Urine Blood Negative (Negative) Urine Nitrite Negative (Negative) Urine Bilirubin Negative (Negative) Urine Urobilinogen 0.2 (0.2) mg/dL Ur Leukocyte Esterase Moderate A (Negative) U Hyaline Cast (Auto) NONE SEEN (0-2) /LPF Urine Microscopic RBC 0-2 (0-5) /HPF Urine Microscopic WBC 51-100 A (0-5) /HPF Ur Epithelial Cells Many A (None Seen) /HPF Calcium Oxalate Crystal 26-50 A (None Seen) /HPF Urine Bacteria Many A (None Seen) /HPF Urine Culture Reflexed ORDERED SEPARATELY (NO) Ur Random Creatinine mg/dl U Random Total Protein (<12) mg/dl U [place] Prot/Creat Ratio (0.0-0.15) mg/mg - Progress Progress: improved, re-examined Air Movement: good Progress Note: 07/27/25 12:38 My medical decision making and the assignment of moderate complexity of this patient's medical issue today is based on review of the patient's past medical history, reviewed patient's medication list, reviewed patient drug allergy list, history present illness and physical findings on examination. The workup as dictated by her braille proofreader who provided us with a list of testing that he wanted performed. Differential diagnosis includes was not limited to muscle skeletal pain, uterine ligament pain, enlargement of uterus, actual contractions, urinary tract infection, dehydration, electrolyte abnormalities The OB department nurses placed the patient on the monitor to evaluate for the heart tones which were 150 bpm. In addition she was evaluated for possible contractions. There were no contractions present. 07/27/25 14:08 I interpreted the patient's laboratory data results. Of significance, the patient has a urinary tract infection. The ultrasound of the kidneys was interpreted by the radiologist. The interpretation states right renal hydronephrosis likely related to . Remaining renal sonogram is negative. 07/27/25 14:10 I called the patient's braille proofreader, Dr. Huynh to update him on the results of the studies that he requested us to do in the emergency department. There was no answer when I called his cell phone directly. Blood Culture(s) Obtained: No Antibiotics given: Yes Counseled pt/family regarding: lab results, diagnosis, need for follow-up, rad results Medical Desision Making - Diagnostic Testing Diagnostic test were ordered, analyzed, and reviewed by me: Yes Radiological Interpretation: Reviewed by me, Teleradiologist Report - Risk of complications Low Risk: Low risk of morbidity from additional dx testing or treatment - Departure Departure Disposition: Home Clinical Impression: Urinary tract infection Condition: Stable Critical Care Time: No Referrals: OLIVIA CUMMINGS NP [Primary Care Provider, [facility]] - Follow up/PCP as directed Additional Instructions: Drink plenty of fluids. Continue your antibiotics as prescribed. Call your braille proofreader on 07/30/2025, to make arrangements for follow-up appointment. If symptoms worsen over the weekend, return to the emergency department for reevaluation
[2025-07-27 12:08] VITALS: RESP 18
[2025-07-27 12:47] LABS: Glucose, Urine Negative (Negative); Protein,Urine Dip Trace (Negative); RBC 0-2 /HPF (0-5); WBC 51-100 /HPF (0-5)
[2025-07-27 12:50] LABS: BASOPHIL % 0.2 % (0.1-1.2); Basophil (Absolute #) 0.02 x10^3/uL (0.01-0.08); Eosinophil (Absolute #) 0.08 x10^3/uL (0.04-0.36); Hematocrit 31.7 % (34.1-44.9); Hemoglobin 9.9 g/dL (11.2-15.7); IMMATURE GRAN # 0.13 x10^3u/L (0.001-0.031); IMMATURE GRAN % 1.2 % (0.001-0.429); Lymphocyte (Absolute #) 1.78 x10^3/uL (1.18-3.74); Mean Corpuscular Hemoglobin 27.5 pg (25.6-32.2); Mean Corpuscular Hgb Concent. 31.2 g/dL (32.2-35.5); Monocyte (Absolute #) 0.81 x10^3/uL (0.24-0.86); NUCLEATED RBC # 0.00 x10^3u/L (0.00-0.012); NUCLEATED RBC % 0.0 % (0.00-0.2); Platelet Count 258 x10^3/uL (182-369); Red Blood Count 3.60 x10^6/uL (3.93-5.22); White Blood Count 10.8 x10^3/uL (3.98-10.04)
[2025-07-27 12:52] LABS: Creatinine, Urine Random 109.0 mg/dl; Protein Creatinine Ratio, Ran. 0.15 mg/mg (0.0-0.15); TP, Urine Random 16.0 mg/dl (<12)
[2025-07-27 12:53] VITALS: O2SAT 97
[2025-07-27 13:06] LABS: Calcium 8.3 mg/dL (8.4-10.2); Carbon Dioxide 22 mmol/L (22-30); Creatinine 1 0.46 mg/dL (0.52-1.04); EST GLOMERULAR FILTRATION RATE 139.5 ML/MIN; Glucose 81 mg/dL (74-106); LDH-LACTATE DEHYDROGENASE 150 U/L (120-246); Potassium 3.8 mmol/L (3.5-5.1); SGOT/AST 24 U/L (14-36); SGPT/ALT 14 U/L (0-35); Total Protein 6.7 g/dL (6.3-8.2); Uric Acid 4.0 mg/dL (2.6-6.0)
--- NOTE | 2025-07-27 13:23 | XRAY ---
Indication: Flank pain, [id number]-left. 28 weeks . Two-dimensional renal sonogram performed. Comparison: None Right kidney measures 12.3 x 6.4 x 5.6 cm and left measures 11.6 x 6.5 x 4.9 cm. Normal perfusion bilaterally. Right kidney mildly hydronephrotic presumed related to current . No focal solid/cystic renal mass. Corticomedullary differentiation preserved. Normally distended urinary bladder appears grossly unremarkable. Normal bilateral ureteral jets. Impression: Right renal hydronephrosis likely related to . Remaining renal sonogram is negative.
[2025-07-27 14:21] VITALS: BP 102/63; PULSE 85
== END 2025-07-27 15:06 | disposition home or self-care (01) ==
LOC: ED 11:40
DX: O23.43 Unspecified infection of urinary tract in pregnancy, third trimester (principal); N39.0 Urinary tract infection, site not specified; Z3A.28 28 weeks gestation of pregnancy; M54.50 Low back pain, unspecified; R30.0 Dysuria; Z79.899 Other long term (current) drug therapy

== ENCOUNTER 2025-08-02 17:23 | Observation (INO) | payer BC, MEDICAID ==
[2025-08-02 17:52] VITALS: RESP 18; TEMP 97.9
[2025-08-02 18:13] LABS: Glucose, Urine Negative (Negative); Protein,Urine Dip Negative (Negative); RBC 0-2 /HPF (0-5)
[2025-08-02 18:51] LABS: BASOPHIL % 0.2 % (0.1-1.2); Basophil (Absolute #) 0.03 x10^3/uL (0.01-0.08); Eosinophil (Absolute #) 0.12 x10^3/uL (0.04-0.36); Hematocrit 30.3 % (34.1-44.9); Hemoglobin 9.9 g/dL (11.2-15.7); IMMATURE GRAN # 0.21 x10^3u/L (0.001-0.031); IMMATURE GRAN % 1.7 % (0.001-0.429); Lymphocyte (Absolute #) 2.31 x10^3/uL (1.18-3.74); Mean Corpuscular Hemoglobin 27.6 pg (25.6-32.2); Mean Corpuscular Hgb Concent. 32.7 g/dL (32.2-35.5); Monocyte (Absolute #) 1.03 x10^3/uL (0.24-0.86); NUCLEATED RBC # 0.03 x10^3u/L (0.00-0.012); NUCLEATED RBC % 0.2 % (0.00-0.2); Platelet Count 237 x10^3/uL (182-369); Red Blood Count 3.59 x10^6/uL (3.93-5.22); White Blood Count 12.4 x10^3/uL (3.98-10.04)
[2025-08-02 19:05] LABS: Calcium 8.9 mg/dL (8.4-10.2); Carbon Dioxide 18.0 mmol/L (22-30); Creatinine 1 0.49 mg/dL (0.52-1.04); EST GLOMERULAR FILTRATION RATE 137.4 ML/MIN; Glucose 79.0 mg/dL (74-106); Potassium 3.8 mmol/L (3.5-5.1); SGOT/AST 25.0 U/L (14-36); SGPT/ALT 18.0 U/L (0-35); Total Protein 6.8 g/dL (6.3-8.2); Uric Acid 3.5 mg/dL (2.6-6.0)
[2025-08-02 19:06] LABS: Creatinine, Urine Random 67.6 mg/dl; Protein Creatinine Ratio, Ran. 0.21 mg/mg (0.0-0.15); TP, Urine Random 14.0 mg/dl (<12)
[2025-08-02 20:14] VITALS: BP 121/59; PULSE 85
== END 2025-08-02 20:24 | disposition home or self-care (01) ==
LOC: OB 17:23
PROVIDERS: ADMIT Obstetrics & Gynecology; ATTEND Obstetrics & Gynecology
DX: Z34.03 Encounter for supervision of normal first pregnancy, third trimester (principal); Z3A.29 29 weeks gestation of pregnancy